=== PATIENT | male | born 1970 | race Caucasian/White ===

== ENCOUNTER → 2017-06-12 07:29 | Outpatient (CLI) | payer OTHER, SELFPAY ==
[2017-06-12 08:29] LABS: Protein, Urine (Random) 226.1 mg/dL (<11.9); Protein:Creat Ratio 1900 mg/g CRE (0-200)
[2017-06-12 08:33] LABS: Absolute Neutrophil Count 4.7 X10^3/uL (2.0-7.7); Basophil# 0.05 X10^3/uL; Basophil% 0.7 % (0-1); Color, Urine Yellow (Yellow); Eosinophil# 0.34 X10^3/uL; Eosinophils% 4.5 % (0-5); Glucose, Dipstick Normal (Normal); Hematocrit 36.3 % (40-54); Hemoglobin 12.4 g/dl (13.0-16.5); Ketone-Dipstick Negative (Negative); Leukocyte Esterase-Dipstick Negative /ul (Negative); Lymphocyte % 25.2 % (19-41); Mean Corp Hgb Conc 34.2 g/gl (32-36); Mean Corpuscular Hgb 30.1 pg (27.0-32.0); Mean Corpuscular Volume 88.1 fL (80-94); Monocyte# 0.59 X10^3/uL; Monocyte% 7.8 % (0-10); Neutrophil # 4.66 X10^3/uL (2.7-7.7); Neutrophil % 61.7 % (47-70); Nitrite-Dipstick Negative (Negative); Occult Blood-Urine 10 /ul (Negative); Platelet Count 239 K/mm3 (150-450); Protein-Dipstick 500 mg/dl (Negative); RBC Distribution Width CV 12.8 % (11.6-14.6); RBC Distribution Width SD 41.4 fl (35.1-43.9); Red Blood Count 4.12 M/mm3 (4.6-6.2); Urine Bilirubin Dipstick Negative (Negative); Urine Clarity Clear (Clear); Urine Urobilinogen Normal (Normal); White Blood Count 7.6 K/mm3 (4.4-11.0)
[2017-06-12 08:43] LABS: POSITIVE COUNT NO; POSITIVE DIFFERENTIAL NO; POSITIVE MORPHOLOGY NO
[2017-06-12 09:04] LABS: AST(SGOT) 23 U/L (15-37); Alanine Aminotransfer ALT/SGPT 26 U/L (16-61); Alkaline Phosphatase 46 U/L (45-117); Anion Gap 7 (5-15); BUN 21 mg/dL (7-18); BUN/Creat Ratio 14.8 RATIO (10-20); Calcium,Total 8.6 mg/dL (8.5-10.1); Chloride 105 mmol/L (98-107); Creatinine, Serum 1.42 mg/dL (0.70-1.30); EST Glomerular Filtration Rate 57 mL/min (>60); Est Glom Filt Rate - Afr Amer 69 mL/min (>60); Glucose 101 mg/dL (74-106); Potassium 4.3 mmol/L (3.5-5.1); Sodium Level 139 mmol/L (136-145)
== END ==
PROVIDERS: Family Provider Nurse Practitioner Family; PCP Nurse Practitioner Family
DX: N02.2 Recurrent and persistent hematuria with diffuse membranous glomerulonephritis (principal)
CPT/HCPCS: 36415; 80053; 81002; 82570; 84156; 85025

== ENCOUNTER → 2017-10-16 08:54 | Outpatient (CLI) | payer OTHER, SELFPAY ==
[2017-10-16 09:06] LABS: Bacteria 0 SEEN /hpf (None Seen); Mucous, Urine 0 SEEN /hpf (<or=2+); Red Blood Cells-Urine 0 SEEN /hpf (0-5); Squamous Epithelial Cells - UA 0 SEEN /hpf (0-5); White Blood Cells 0 SEEN /hpf (0-5)
[2017-10-16 09:25] LABS: Absolute Lymphocyte Count 2.01 X10^3/ul (0.83-4.51); Absolute Neutrophil Count 4.6 X10^3/uL (2.0-7.7); Basophil# 0.04 X10^3/uL; Basophil% 0.5 % (0-1); Eosinophil# 0.33 X10^3/uL; Eosinophils% 4.4 % (0-5); Hematocrit 35.3 % (40-54); Hemoglobin 12.3 g/dl (13.0-16.5); Lymphocyte # 2.01 X10^3/ul (4.0); Lymphocyte % 26.7 % (19-41); Mean Corp Hgb Conc 34.8 g/gl (32-36); Mean Corpuscular Hgb 30.8 pg (27.0-32.0); Mean Corpuscular Volume 88.3 fL (80-94); Mean Platelet Vol. 9.9 fl (6.2-12.0); Monocyte# 0.56 X10^3/uL; Monocyte% 7.4 % (0-10); Neutrophil # 4.56 X10^3/uL (2.7-7.7); Neutrophil % 60.7 % (47-70); POSITIVE COUNT NO; POSITIVE DIFFERENTIAL NO; POSITIVE MORPHOLOGY NO; Platelet Count 243 K/mm3 (150-450); RBC Distribution Width CV 12.6 % (11.6-14.6); RBC Distribution Width SD 39.8 fl (35.1-43.9); White Blood Count 7.5 K/mm3 (4.4-11.0)
[2017-10-16 09:51] LABS: Color, Urine Yellow (Yellow); Glucose, Dipstick Normal (Normal); Ketone-Dipstick Negative (Negative); Leukocyte Esterase-Dipstick Negative /ul (Negative); Nitrite-Dipstick Negative (Negative); Occult Blood-Urine 10 /ul (Negative); Protein-Dipstick 500 mg/dl (Negative); Specific Gravity, Urine 1.015 (1.002-1.030); Urine Bilirubin Dipstick Negative (Negative); Urine Clarity Clear (Clear); Urine Urobilinogen Normal (Normal)
[2017-10-16 09:55] LABS: BUN 17 mg/dL (7-18); BUN/Creat Ratio 13.1 RATIO (10-20); Calcium,Total 8.6 mg/dL (8.5-10.1); Chloride 108 mmol/L (98-107); EST Glomerular Filtration Rate 63 mL/min (>60); Est Glom Filt Rate - Afr Amer 76 mL/min (>60); Glucose 97 mg/dL (74-106); Phosphorus 3.4 mg/dL (2.5-4.9); Potassium 4.2 mmol/L (3.5-5.1); Sodium Level 139 mmol/L (136-145)
[2017-10-16 09:59] LABS: Protein, Urine (Random) 196.7 mg/dL (<11.9); Protein:Creat Ratio 1710 mg/g CRE (0-200)
== END ==
PROVIDERS: Family Provider Nurse Practitioner Family; PCP Nurse Practitioner Family
DX: N02.2 Recurrent and persistent hematuria with diffuse membranous glomerulonephritis (principal)
CPT/HCPCS: 36415; 80069; 81001; 82570; 84156; 85025

== ENCOUNTER → 2017-12-11 09:15 | Outpatient (CLI) | payer OTHER, SELFPAY ==
[2017-12-11 09:24] LABS: Bacteria 0 SEEN /hpf (None Seen); Mucous, Urine 0 SEEN /hpf (<or=2+); Red Blood Cells-Urine 0 SEEN /hpf (0-5); Squamous Epithelial Cells - UA 0 SEEN /hpf (0-5); White Blood Cells 0 SEEN /hpf (0-5)
[2017-12-11 09:44] LABS: Color, Urine Yellow (Yellow); Glucose, Dipstick Normal (Normal); Hematocrit 36.1 % (40-54); Hemoglobin 12.6 g/dl (13.0-16.5); Ketone-Dipstick Negative (Negative); Leukocyte Esterase-Dipstick Negative /ul (Negative); Mean Corp Hgb Conc 34.9 g/gl (32-36); Mean Corpuscular Hgb 30.8 pg (27.0-32.0); Mean Corpuscular Volume 88.3 fL (80-94); Nitrite-Dipstick Negative (Negative); Occult Blood-Urine 10 /ul (Negative); Platelet Count 234 K/mm3 (150-450); Protein-Dipstick 100 mg/dl (Negative); RBC Distribution Width CV 12.8 % (11.6-14.6); RBC Distribution Width SD 40.6 fl (35.1-43.9); Red Blood Count 4.09 M/mm3 (4.6-6.2); Specific Gravity, Urine 1.015 (1.002-1.030); Urine Bilirubin Dipstick Negative (Negative); Urine Clarity Clear (Clear); Urine Urobilinogen Normal (Normal); White Blood Count 8.4 K/mm3 (4.4-11.0)
[2017-12-11 09:45] LABS: Scan Indicated on CBC? Y/N NO
[2017-12-11 10:18] LABS: Protein:Creat Ratio 1789 mg/g CRE (0-200)
[2017-12-11 10:20] LABS: Albumin, Serum 3.1 g/dL (3.2-5.0); BUN 17 mg/dL (7-18); BUN/Creat Ratio 12.1 RATIO (10-20); Calcium,Total 8.8 mg/dL (8.5-10.1); Chloride 106 mmol/L (98-107); EST Glomerular Filtration Rate 58 mL/min (>60); Est Glom Filt Rate - Afr Amer 70 mL/min (>60); Glucose 96 mg/dL (74-106); Phosphorus 3.8 mg/dL (2.5-4.9); Sodium Level 140 mmol/L (136-145)
== END ==
PROVIDERS: Family Provider Nurse Practitioner Family; PCP Nurse Practitioner Family
DX: N02.2 Recurrent and persistent hematuria with diffuse membranous glomerulonephritis (principal)
CPT/HCPCS: 36415; 80069; 81001; 82570; 84156; 85027

== ENCOUNTER → 2018-04-12 07:46 | Outpatient (CLI) | payer OTHER, SELFPAY ==
[2018-04-12 07:56] LABS: Mucous, Urine 0 SEEN /hpf (<or=2+); Red Blood Cells-Urine 0 SEEN /hpf (0-5); Squamous Epithelial Cells - UA 0 SEEN /hpf (0-5); White Blood Cells 0 SEEN /hpf (0-5)
[2018-04-12 09:25] LABS: Absolute Lymphocyte Count 1.88 X10^3/ul (0.83-4.51); Basophil# 0.04 X10^3/uL; Basophil% 0.5 % (0-1); Eosinophil# 0.36 X10^3/uL; Eosinophils% 4.5 % (0-5); Hematocrit 36.9 % (40-54); Hemoglobin 12.5 g/dl (13.0-16.5); Lymphocyte # 1.88 X10^3/ul (4.0); Lymphocyte % 23.7 % (19-41); Mean Corp Hgb Conc 33.9 g/gl (32-36); Mean Corpuscular Hgb 30.3 pg (27.0-32.0); Mean Corpuscular Volume 89.6 fL (80-94); Mean Platelet Vol. 10.6 fl (6.2-12.0); Monocyte# 0.64 X10^3/uL; Monocyte% 8.1 % (0-10); Neutrophil % 62.9 % (47-70); Platelet Count 235 K/mm3 (150-450); RBC Distribution Width CV 12.6 % (11.6-14.6); RBC Distribution Width SD 40.5 fl (35.1-43.9); Red Blood Count 4.12 M/mm3 (4.6-6.2); White Blood Count 7.9 K/mm3 (4.4-11.0)
[2018-04-12 09:26] LABS: Color, Urine Yellow (Yellow); Glucose, Dipstick Normal (Normal); Ketone-Dipstick Negative (Negative); Leukocyte Esterase-Dipstick Negative /ul (Negative); Nitrite-Dipstick Negative (Negative); Occult Blood-Urine 10 /ul (Negative); Protein-Dipstick 500 mg/dl (Negative); Specific Gravity, Urine 1.015 (1.002-1.030); Urine Bilirubin Dipstick Negative (Negative); Urine Clarity Sl. Cloudy (Clear); Urine Urobilinogen Normal (Normal)
[2018-04-12 09:27] LABS: POSITIVE COUNT NO; POSITIVE DIFFERENTIAL NO; POSITIVE MORPHOLOGY NO
[2018-04-12 09:39] LABS: Bacteria RARE /hpf (None Seen); Protein, Urine (Random) 489.9 mg/dL (<11.9); Protein:Creat Ratio 3711 mg/g CRE (0-200)
[2018-04-12 09:52] LABS: Albumin, Serum 2.5 g/dL (3.2-5.0); BUN 23 mg/dL (7-18); BUN/Creat Ratio 17.4 RATIO (10-20); Calcium,Total 8.2 mg/dL (8.5-10.1); Chloride 109 mmol/L (98-107); Creatinine, Serum 1.32 mg/dL (0.70-1.30); EST Glomerular Filtration Rate 62 mL/min (>60); Est Glom Filt Rate - Afr Amer 74 mL/min (>60); Glucose 96 mg/dL (74-106); Phosphorus 3.2 mg/dL (2.5-4.9); Potassium 4.1 mmol/L (3.5-5.1); Sodium Level 142 mmol/L (136-145)
--- OUTSIDE RECORDS SUMMARY | 2018-07-14 12:40 | XMS RPT_ITS ---
:1970 Author Organization [facility] Care Team Providers Name Role Phone EVERETT GIRARD Attending Unavailable EVERETT GIRARD Referring Unavailable GIRARDEVERETT Acosta Attending Unavailable GIRARDEVERETT Acosta Referring Unavailable GIRARDEVERETT Acosta Referring Unavailable JOSE FRIED Attending Unavailable JOSE FRIED Referring Unavailable Garrett Wallace DRY TRANSFER WORKER-C Primary Care Unavailable JOSE FRIED Attending Unavailable Garrett Wallace DRY TRANSFER WORKER-C Primary Care Unavailable JOSE FRIED Referring Unavailable JOSE FRIED Attending Unavailable JOSE FRIED Referring Unavailable Garrett Wallace DRY TRANSFER WORKER-C Primary Care Unavailable JOSE FRIED Attending Unavailable JOSE FRIED Referring Unavailable Garrett Wallace DRY TRANSFER WORKER-C Primary Care Unavailable PROBLEMS PROBLEMS DATE TYPE CONDITION / CODE ATTENDING STATUS SOURCE 12/16/2017 Active Obesity, unspecified / NA Active [facility] E66.9(ICD-10) [facility] [place] [facility] 05/10/2015 Active Tobacco use / NA Active [facility] Z72.0(ICD-10) [facility] [place] [facility] 03/14/2013 Active Chronic kidney disease, NA Active [facility] stage 3 (moderate) / Clinic Main N18.3(ICD-10) [place] [facility] 08/02/2012 Active Nephrotic syndrome with NA Active [facility] other morphologic Clinic Main changes / N04.8(ICD-10) [place] [facility] 08/02/2012 Active Nephrotic syndrome with NA Active [facility] unspecified morphologic Clinic Main changes / N04.9(ICD-10) [place] [facility] 06/17/2017 Active Unknown / UNK(Unknown) EVERETT GIRARD Active [facility] Main [place] Rep[facility] 12/22/2017 Unknown N02.2 - Recurrent and JOSE FRIED Active [place] persistent hematuria [facility] with diffuse membranous Hospital glomerulonephritis / Repository N02.2(ICD-10) PROCEDURES PROCEDURES No Procedure Records FoundRESULTS RESULTS CBC W/DIFF, AUTOMATED Collected: 04/12/2018 Status: F Source: [place] 7:54 AM [facility] REPOSITORY TYPE CODE TESTS RESULT OUT OF RANGE REFERENCE UNITS LAB L100.1000 4.4-11.0 K/mm3 Normal WBC 7.9 LAB L100.1200 4.6-6.2 M/mm3 Low RBC 4.12 LAB L100.1300 13.0-16.5 g/dl Low HGB 12.5 LAB L100.1400 40-54 % Low HCT 36.9 LAB L100.1500 80-94 fL Normal MCV 89.6 LAB L100.1600 27.0-32.0 pg Normal MCH 30.3 LAB L100.1700 32-36 g/gl Normal MCHC 33.9 LAB L100.1810 11.6-14.6 % Normal RDW CV 12.6 LAB L100.1820 35.1-43.9 fl Normal RDW SD 40.5 LAB L100.1900 150-450 K/mm3 Normal PLT 235 LAB L100.2000 6.2-12.0 fl Normal MPV 10.6 LAB L100.2100 47-70 % Normal NEUT% 62.9 LAB L100.2200 19-41 % Normal LY% 23.7 LAB L100.2300 0-10 % Normal MONO% 8.1 LAB L100.2400 0-5 % Normal EO% 4.5 LAB L100.2500 0-1 % Normal BASO% 0.5 LAB L100.2550 0.0-0.9 % Normal IM GRAN % 0.300 Result Comment: IG% - Immature Granulocytes (promyelocytes, myelocytes and metamyelocytes) > 1% indicates that a LEFT SHIFT is Present. LAB L100.2620 2.0-7.7 X10 3/uL Normal Absolute Neut 5.0 LAB L100.2720 0.83-4.51 X10 3/ul Normal Absolute Lymph 1.88 Performed By: #### L100.0100 #### [facility] [address] [place], [address] PROTEIN+CREATININE Collected: Status: F Source: [place] RATIO,URINE 04/12/2018 7:54 AM [facility] REPOSITORY TYPE CODE TESTS RESULT OUT OF RANGE REFERENCE UNITS LAB L501.1200 NO RANGE EST. mg/dL Normal UR CREAT 132.00 LAB L501.1930 <11.9 mg/dL High 489.9 PROTEIN,UR.R AN. LAB L501.1940 0-200 mg/g CRE High PROT:CRE 3711 RATIO Performed By: #### L501.0900 #### [facility] [address] [place], [address] URINALYSIS, COMPLETE Collected: 04/12/2018 Status: F Source: [place] 7:54 AM [facility] REPOSITORY Order Comment: How was Urine Obtained? CLEAN CATCH TYPE CODE TESTS RESULT OUT OF RANGE REFERENCE UNITS LAB L400.3000 Yellow COLOR Normal Yellow LAB L400.3050 Clear Normal CLARITY Sl. Cloudy LAB L400.3200 Normal mg/dl Normal GLUCOSE, UR Normal LAB L400.3300 Negative mg/dL Normal BILIRUBIN URINE Negative LAB L400.3400 Negative mg/dl Normal KETONE UR Negative LAB L400.3465 1.002-1.030 Normal SP.GR. DIPSTX 1.015 LAB L400.3550 5.0 - 8.0 pH UR Normal 6.0 LAB L400.3600 Negative mg/dl High PROT DIPSTX 500 LAB L400.3700 Normal mg/dl Normal UROBILI Normal LAB L400.3750 Negative Normal NITRITE UR Negative LAB L400.3780 Negative /ul High 10 OCCULT BLOOD-UR LAB L400.3800 Negative /ul LEUK Normal ESTERASE Negative LAB L400.4050 0-5 /hpf WBC 0 Normal SEEN LAB L400.4100 0-5 /hpf 0 Normal RBC-UA SEEN LAB L400.4150 0-5 /hpf SQUAM 0 Normal EPI SEEN LAB L400.4300 None Seen /hpf Normal BACTERIA RARE LAB L400.4350 <or=2+ /hpf 0 Normal MUCUS, URINE SEEN Performed By: #### L400.0001 #### [facility] [address] [place], [place], [address] RENAL PROFILE Collected: 04/12/2018 Status: F Source: [place] 7:54 AM [facility] REPOSITORY TYPE CODE TESTS RESULT OUT OF RANGE REFERENCE UNITS LAB L501.0100 74-106 mg/dL Normal GLU 96 Result Comment: Please note revised GLUCOSE reference range effective 2017. LAB L501.1000 7-18 mg/dL High BUN 23 LAB L501.1100 0.70-1.30 mg/dL High CREAT,SERUM 1.32 Result Comment: The validity of the calculated GFR AND GFRAA in patients over 70 years has not been determined. Clinical correlation is essential. LAB L501.1110 >60 mL/min Normal EST GFR 62 Result Comment: Non- GFR Calc LAB L501.1115 >60 mL/min Normal EST GFR - AA 74 Result Comment: GFR Calc LAB L501.1300 10-20 RATIO Normal BUN/CRE 17.4 LAB L501.1800 3.2-5.0 g/dL Low ALB 2.5 LAB L501.2200 8.5-10.1 mg/dL Low CA 8.2 LAB L501.2300 2.5-4.9 mg/dL Normal PHOS 3.2 LAB L501.5300 136-145 mmol/L NA Normal 142 LAB L501.5600 3.5-5.1 mmol/L K Normal 4.1 LAB L501.5900 98-107 mmol/L High CL 109 LAB L501.6100 21.0-32.0 mmol/L Normal CO2 27.0 Performed By: #### L500.3600 #### [facility] [address] [place], [address] CBC AND DIFFERENTIAL Collected: 12/16/2017 Status: F Source: [place] 10:11 AM [facility] REPOSITORY TYPE CODE TESTS RESULT OUT OF REFERENCE UNITS RANGE LAB WBC 3.70-11.00 k/uL WBC 8.96 LAB RBC 4.20-6.00 m/uL Low RBC 4.04 LAB HGB 13.0-17.0 g/dL Low Hemoglobin 12.5 LAB HCT 39.0-51.0 % Low Hematocrit 36.7 LAB MCV 80.0-100.0 fL MCV 90.8 LAB MCH 26.0-34.0 pG MCH 30.9 LAB MCHC 30.5-36.0 g/dL MCHC 34.1 LAB RDWCV 11.5-15.0 % RDW-CV 12.6 LAB PLTCT 150-400 k/uL Platelet Count 241 LAB MPV 9.0-12.7 fL MPV 10.2 LAB ANEUT % Neut% 60.2 LAB AANEUT 1.45-7.50 k/uL Abs Neut 5.38 LAB ALYMP % Lymph% 27.2 LAB AALYMP 1.00-4.00 k/uL Abs Lymph 2.44 LAB AMONO % Wetzel% 8.1 LAB AAMONO <0.87 k/uL Abs Wetzel 0.73 LAB AEOS % Eosin% 4.2 LAB AAEOS <0.46 k/uL Abs Eosin 0.38 LAB ABASO % Baso% 0.3 LAB AABASO <0.11 k/uL Abs Baso 0.03 LAB DTYP DTYPE Auto Diff Performed By: #### PTHI, LIPB, HBA1C, VITD #### [facility] [address] [place], [place] [address] #### PLA2R #### [facility] [address] [place] [address] [phone] RENAL FUNCTION PANEL Collected: 12/16/2017 Status: F Source: [place] 10:11 AM [facility] REPOSITORY TYPE CODE TESTS RESULT OUT OF REFERENCE UNITS RANGE LAB ALB 3.5-5.0 g/dL Albumin 3.7 LAB CA 8.5-10.5 mg/dL Calcium, Total 9.1 LAB PHOS 2.5-4.5 mg/dL Phosphorus 3.2 LAB GLU 65-100 mg/dL Glucose High 107 LAB BUN 10-25 mg/dL BUN 22 LAB CRET 0.70-1.40 mg/dL Creatinine 1.40 LAB NA 135-146 mmol/L Sodium 143 LAB K 3.5-5.0 mmol/L Potassium 4.6 LAB CL 98-110 mmol/L Chloride 108 LAB CO2 23-32 mmol/L CO2 24 LAB AGAP 9-18 mmol/L Anion Gap 11 LAB GFRAA eGFR- >60 Amer. LAB GFRNAA . eGFR-All Other Races 54 Result Comment: eGFR (Estimated GFR) Units of measure: mL/min/1.73 meters squared eGFR is derived from the reexpressed MDRD Study equation using the following parameters: serum creatinine, age, gender and race. The creatinine assay has been calibrated to be traceable to IDMS. An eGFR <60 mL/min/1.73m2 for >3 months is consistent with chronic kidney disease. Refer to KDOQI guidelines for clinical interpretation. In patients with unstable renal function, e.g. those with acute kidney injury, the eGFR may not accurately reflect actual GFR. Performed By: #### PTHI, LIPB, HBA1C, VITD #### [facility] [address] [place] [phone] #### PLA2R #### [facility] [address] [place] [address] [phone] PTH, INTACT Collected: 12/16/2017 Status: F Source: [place] 10:11 AM [facility] REPOSITORY TYPE CODE TESTS RESULT OUT OF REFERENCE UNITS RANGE LAB PTH 15-65 pg/mL PTH, Intact 35 Performed By: #### PTHI, LIPB, HBA1C, VITD #### [facility] [address] [place] [phone] #### PLA2R #### [facility] [address] [place] [address] [phone] LIPID PANEL, BASIC Collected: 12/16/2017 Status: F Source: [place] 10:11 AM [facility] REPOSITORY TYPE CODE TESTS RESULT OUT OF REFERENCE UNITS RANGE LAB CHOL <200 mg/dL Cholesterol High 225 Result Comment: <200 mg/dL, Desirable 200-239 mg/dL, Borderline high >239 mg/dL, High LAB TRIGLY <150 mg/dL Triglyceride High 163 Result Comment: <150 mg/dL, Normal 150-199 mg/dL, Borderline high 200-499 mg/dL, High >499 mg/dL, Very high LAB HDL >39 mg/dL HDL-Cholesterol Low 35 Result Comment: 40-59 mg/dL, Acceptable >59 mg/dL, High: Negative risk factor for coronary heart disease <40 mg/dL, Low: Positive risk factor for coronary heart disease LAB LDL <100 mg/dL LDL-Cholesterol High 157 Result Comment: <100 mg/dL, Optimal 100-129 mg/dL, Near optimal/above optimal 130-159 mg/dL, Borderline high 160-189 mg/dL, High >189 mg/dL, Very high Secondary prevention optimal LDL Cholesterol levels are recommended to be < 70 mg/dL LAB NONHDL <130 mg/dL Non HDL High Cholesterol 190 Result Comment: <130 mg/dL, Optimal 130-159 mg/dL, Near optimal/above optimal 160-189 mg/dL, Borderline high 190-219 mg/dL, High >219 mg/dL, Very high Secondary prevention optimal non HDL Cholesterol levels are recommended to be < 100 mg/dL LAB FT hrs Fasting Time Unknown LAB VLDL <30 mg/dL VLDL 33 High Cholesterol LAB TCHDL <5.10 TC:HDL Ratio High 6.43 LAB LDLHDL <2.54 LDL:HDL Ratio High 4.49 Result Comment: Reference: 1. National Cholesterol Education Program ATP III Guideline At-A-Glance Quick Desk Reference: National Heart, Lung, and Blood [place]. National Institutes of Health. 2001: NIH Publication No. 01-3305. 2. An International Atherosclerosis Society position paper: global recommendations for the management of dyslipidemia: executive summary, Atherosclerosis. 2014: 232(2):410-413. Performed By: #### PTHI, LIPB, HBA1C, VITD #### [facility] [address] [place], [place] [address] #### PLA2R #### [facility] [address] [place] [address] [phone] HEMOGLOBIN A1C Collected: 12/16/2017 Status: F Source: [place] 10:11 AM [facility] REPOSITORY TYPE CODE TESTS RESULT OUT OF REFERENCE UNITS RANGE LAB HGBA1C 4.3-5.6 % High Hemoglobin A1c 5.9 LAB HBA0 mg/dL Est. Average Glucose 123 Result Comment: eAG: (Estimated average glucose) is a calculated value from HgbA1c and is used equipment sales representative of the average blood glucose level in the last 2-3 month period. Performed By: #### PTHI, LIPB, HBA1C, VITD #### [facility] [address] [place] [address] #### PLA2R #### [facility] [address] [id number] [phone] VITAMIN D 25 HYDROXY Collected: 12/16/2017 Status: F Source: [place] 10:11 AM [facility] REPOSITORY TYPE CODE TESTS RESULT OUT OF REFERENCE UNITS RANGE LAB VITD 31.0-80.0 ng/mL Low Vitamin D 25 27.9 Hydroxy Result Comment: Classification of 25 [place] Vitamin D status: Insufficiency/Moderate Deficiency: < or = 30 ng/mL Sufficiency/Optimal Levels: 31 to 80 ng/mL Toxicity: > 100 ng/mL Test performed by chemiluminescent immunoassay. Performed By: #### PTHI, LIPB, HBA1C, VITD #### [facility] [address] [place] [address] #### PLA2R #### [address] [address] [phone] PHOSLIPASEA2 RECEPAB Collected: 12/16/2017 Status: F Source: [place] 10:11 AM [facility] REPOSITORY TYPE CODE TESTS RESULT OUT OF REFERENCE UNITS RANGE LAB PLA2RA <1:10 PhosLipaseA2 <1:10 RecepAb Result Comment: (NOTE) Phospholipase A2 ReceptorAntibody, IgG is not detected. No further testing will be performed. Performed by [facility], [address] [place] [phone] [email or web address], Bassam Vargas MD, Lab. Director Performed By: #### PTHI, LIPB, HBA1C, VITD #### [facility] [address] [place] [address] #### PLA2R #### [employer] [address] [id number] [phone] PROGRESS Observed: 12/16/2017 Status: COMPLETED Source: [place] 9:36 AM [facility] [place] REPOSITORY O ID: [id number] Author: Everett Girard Service: (none) Author Type: Physician Type: Progress Notes Filed: 12/16/2017 9:55 AM Note Text: [facility] FOR[facility]. Patient Name: Fan Donahue CHIEF COMPLAINT: follow up on membranous nephropathy. HPI: Fan Donahue is a 46 year old (Gnosticist) male accompanied by his . ?? I initially saw him in July 2012. Mr. Donahue came seeking a second opinion for nephrotic syndrome with up to 9 gr/day, biopsy proven idiopathic/immune membranous glomerulopathy for which he was started on diuretics and cyclosporine. The biopsy was confirmed as membranous here. He quit taking the latter one due to side effects that according to him developed within 2 days, later stopping all medications recommended by physicians. His eGFR was above 80 according to outside medical records. He did have multiple serologies checked with all normal or negative results. At that point I was in agreement with immunosuppression given the high degree of proteinuria, however, wanted to add VIMAL inhibitor. He agreed at that moment but didn't take any medications other than herbal and OTC supplements that he was told by non-medical personnel it would improve his kidney disease. He later agreed to take lisinopril and furosemide but renal function continued to deteriorate with Cr up to 1.5 and proteinuria peaking at 18 gr/day. Finally agreed to start steroid high dose 80 mg/day and cyclosporine 100 mg BID during visit 03/14/13. 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 Had excellent reponse with proteinuria coming down from 18 to 3.6 gr, albumin improved and lipids decreased. He was on coumadin prophylaxis now stopped. Had echocardio due to new murmur pretty much unremarkable. BRENT in the past. He plays with the medications sometimes trying to avoid side effects. He actually stopped taking prednisone altogether due to blurry vision in his left eye at some point. Had laser surgery. ?? Had PLA2R positive titer 1:80 in 01/2015 and repeated in 08/2015 1:160. Was then given Rituximab 1 gr IV x2 on 09/25 and 10/10 2015. PLA2R almost negative (1:10)?in 10/2015 positive again 1:80 in 07/2016. Off prednisone and cyclosporine since 11/2015. Pr/Cr ratio 2.9 up in most recent in 07/2016 to 3.7, Cr up to 1.3 from 1.2 and alb down from 2.6 to 2.3. ?Again feeling not well since last visit in 07/2016. ?Worsening albumin 2.0 10/20/16 and PrCr ratio up to 5 again in 07/2016. ?Was given Rituximab second round in and 11/2016. Since then feeling much better. ?01/30/2017: Cr 1.2, Alb 2.6, Pr/Cr 2.3, Hg 12.5. Since visit in 05/2017 virtually no edema, variable frothy urine but is random. Knows he has gained a lot of weight. Continues to smoke. Labs 11/2017 stable Cr ~1.4, Alb 3.1, Pr/Cr 1.7. 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 - CKD (chronic kidney disease) stage 3, GFR 30-59 ml/min ([facility]) - Membranous nephrosis - Nephrotic syndrome - Tobacco use PAST SURGICAL HISTORY Procedure Laterality Date - PAST SURGICAL HISTORY OF appendix Current Outpatient Prescriptions: lisinopril (ZESTRIL, PRINIVIL) 10 mg tablet Take 1 tablet by mouth once daily. Magnesium 30 mg tablet Take 30 mg by mouth twice daily. Unsure of dose escitalopram oxalate 10 mg tablet Take 1 tablet by mouth once daily. CALCIUM ORAL Take 1 tablet by mouth twice daily. No current facility-administered medications for this visit. ALLERGIES No Known Allergies Social History Marital status: Spouse name: Years of education: Number of children: Occupational History Occupation Employer Comment Land work. Social History Main Topics Smoking status: Current Every Day Smoker Packs/day: 0.80 Years: 20.00 Types: Cigarettes Smokeless tobacco: Never Used Alcohol use: No Drug use: No FAMILY HISTORY Problem Relation Age of Onset - Hypertension Mother - Hypertension Sister - other (amyloidosis [Other]) Other Cousin on [employer] due to it. Review of systems: General: Negative for weight loss, night sweats, fever, and fatigue Head/Neck: Negative for photophobia, oral ulcers/sores, metallic or bitter taste, epistaxis, and chronic nasal congestion Cardiac: Negative for syncope, palpitations, orthopnea, lightheadedness, dizziness, chest pain or pressure, and PND Vascular: Negative for raynauds, edema, and claudication Pulmonary: Negative for hemoptosis, dyspnea, and cough GastroIntestinal: Negative for nausea, loss of appetite, emesis, diarrhea, constipation, and abdominal pain Genito-Urinary: Positive for frothy urine; Negative for urinary hesitancy, urinary frequency, straining, pink or red urine, pain with urination, nocturia, groin pain, flank pain, and decreased urine Musculoskeletal: Negative for joint swelling, and joint pain Neurologic: Negative for weakness, tremor, parathesias, and numbness Skin: Negative for rash, photosensitivity, and malar rash Hematology: Negative for easy bruising, and easy bleeding Endocrinology: Negative for hypoglycemic events, and heat or cold intolerance Other: Negative for morning headache, excessive snoring, and daytime somnolence No enlarged lymph nodes, lymphadenopathy or lymph tenderness. BP 119/78 (BP Site: Right Arm, BP Position: Sitting, BP Cuff Size: Regular Adult) Pulse (!) 50 Ht 175.3 cm (5' 9) Wt 106.1 kg (234 lb) BMI 34.56 kg/m? Average BP (BpTru): 119/78 BpTRU BP #1 discard value (BpTru): 126/79 Pulse #1 Discard Value (BpTru): 49 beats/min BP #2 (BpTru): 119/80 Pulse #2 (BpTru): 49 beats/min BP #3 (BpTru): 124/73 Pulse #3 (BpTru): 49 beats/min BP #4 (BpTru): 116/83 Pulse #4 (BpTru): 50 beats/min BP #5 (BpTru): 123/79 Pulse #5 (BpTru): 52 beats/min BP #6 (BpTru): 115/76 Pulse #6 (BpTru): 50 beats/min Average BP (BpTru): 119/78 Average Pulse (BpTru): 50 beats/min BP cuff location: Right upper arm BP cuff size: regular adult Exam: Constitutional: Not obese. Mental status: alert and oriented x 3. No acute distress. ENT: Oral mucosa: moist, no lesions, no jaundice. Oropharynx no lesions, erythema or exudate. Eyes: No icterus, not injected. Cardiovascular: Heart: normal rate, regular rhythm, + murmur heard today, no rubs. Lungs: Symmetric lung expansion. Clear to auscultation without wheezes, rales or rubs. Abdomen: Flat. Bowel sounds present and normoactive. Non-tender to palpation. Non-distended. Extremities: No edema. No deformities. Skin: No jaundice. No rash. No malar rash. Musculoskeletal: Joints without swelling, tenderness, erythema, warmth. No muscle tenderness. FROM Neuro: no major focal deficits. No asterixis. Labs reviewed Hemoglobin (g/dL) Date Value 08/20/2016 12.6 Hematocrit (%) Date Value 08/20/2016 37.1 WBC (k/uL) Date Value 08/20/2016 9.70 Glucose (mg/dL) Date Value 08/20/2016 99 Potassium (mmol/L) Date Value 08/20/2016 4.2 Sodium (mmol/L) Date Value 08/20/2016 140 Chloride (mmol/L) Date Value 08/20/2016 107 CO2 (mmol/L) Date Value 08/20/2016 23 Creatinine (mg/dL) Date Value 08/20/2016 1.40 BUN (mg/dL) Date Value 08/20/2016 21 Anion Gap (mmol/L) Date Value 08/20/2016 10 Calcium (mg/dL) Date Value 08/20/2016 8.6 Albumin (g/dL) Date Value 08/20/2016 2.6 pH, Urine Date Value Ref Range Status 04/07/2016 6.5 4.5 - 8.0 Final Specific [place], Ur Date Value Ref Range Status 04/07/2016 1.013 1.005 - 1.030 Final Glucose, Urine Date Value Ref Range Status 04/07/2016 Negative Negative mg/dL Final Bilirubin, Urine Date Value Ref Range Status 04/07/2016 Negative Negative Final Ketones, Urine Date Value Ref Range Status 04/07/2016 Negative Negative Final Hemoglobin/Blood,Ur Date Value Ref Range Status 04/07/2016 Trace (A) Negative Final Protein, Urine Date Value Ref Range Status 04/07/2016 >=300 (A) Negative mg/dL Final Urobilinogen Date Value Ref Range Status 04/07/2016 Normal Normal Final Nitrites Date Value Ref Range Status 04/07/2016 Negative Negative Final WBC, Urine Date Value Ref Range Status 04/07/2016 0-5 0 - 5 /HPF Final Assessment/Plan- P ICD-10-CM PL 1. Membranous nephrosis N04.8 Change Dx 2. Chronic kidney disease, stage III (moderate) (HCC) N18.3 Change Dx 3. Obesity, Class I, BMI 30-34.9 E66.9 Change Dx 4. Nephrotic syndrome N04.9 Change Dx 5. Tobacco use Z72.0 Stable renal function. Still with residual proteinuria. Based on this will increase lisinopril 20 mg/night. Will check labs closer due to this change and for progression of the disease. Will do monthly labs and RTC in 6 months. Will also do labs here today mainly to check on titers of PLA2R which haven't been checked since 07/2016 as we need to see if another dose of Rituximab or other IS is warranted. Will also check PTH, vit D and lipids with HgA1c All questions answered. Thank You for allowing us to participate in his care. Everett Girard MD. [facility] [id number] Staff. Nephrology and Hypertension. December 16, 2017 9:37 AM CNOV Observed: 12/16/2017 Status: COMPLETED Source: [place] 9:05 AM [facility] REPOSITORY Office Visit (NEPHTW) FAN DONAHUE ([id number]) 1970 M Date Time Provider Department 12/16/17 9:05 AM EVERETT GIRARD NEPHTW During your visit today, we recorded the following information about you: Pulse Blood pressure Weight Height 50/minute 119/78 106.1 kg 1.753 m Karen Rob Patrick 12/16/2017 9:00 AM Signed Average BP (BpTru): 119/78 BpTRU BP #1 discard value (BpTru): 126/79 Pulse #1 Discard Value (BpTru): 49 beats/min BP #2 (BpTru): 119/80 Pulse #2 (BpTru): 49 beats/min BP #3 (BpTru): 124/73 Pulse #3 (BpTru): 49 beats/min BP #4 (BpTru): 116/83 Pulse #4 (BpTru): 50 beats/min BP #5 (BpTru): 123/79 Pulse #5 (BpTru): 52 beats/min BP #6 (BpTru): 115/76 Pulse #6 (BpTru): 50 beats/min Average BP (BpTru): 119/78 Average Pulse (BpTru): 50 beats/min BP cuff location: Right upper arm BP cuff size: regular adult Everett Girard MD 12/16/2017 9:55 AM Signed [facility]. Patient Name: Fan Donahue CHIEF COMPLAINT: follow up on membranous nephropathy. HPI: Fan Donahue is a 46 year old (Gnosticist) male accompanied by his . ?? I initially saw him in July 2012. Mr. Donahue came seeking a second opinion for nephrotic syndrome with up to 9 gr/day, biopsy proven idiopathic/immune membranous glomerulopathy for which he was started on diuretics and cyclosporine. The biopsy was confirmed as membranous here. He quit taking the latter one due to side effects that according to him developed within 2 days, later stopping all medications recommended by physicians. His eGFR was above 80 according to outside medical records. He did have multiple serologies checked with all normal or negative results. At that point I was in agreement with immunosuppression given the high degree of proteinuria, however, wanted to add VIMAL inhibitor. He agreed at that moment but didn't take any medications other than herbal and OTC supplements that he was told by non-medical personnel it would improve his kidney disease. He later agreed to take lisinopril and furosemide but renal function continued to deteriorate with Cr up to 1.5 and proteinuria peaking at 18 gr/day. Finally agreed to start steroid high dose 80 mg/day and cyclosporine 100 mg BID during visit 03/14/13. 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 Had excellent reponse with proteinuria coming down from 18 to 3.6 gr, albumin improved and lipids decreased. He was on coumadin prophylaxis now stopped. Had echocardio due to new murmur pretty much unremarkable. BRENT in the past. He plays with the medications sometimes trying to avoid side effects. He actually stopped taking prednisone altogether due to blurry vision in his left eye at some point. Had laser surgery. ?? Had PLA2R positive titer 1:80 in 01/2015 and repeated in 08/2015 1:160. Was then given Rituximab 1 gr IV x2 on 09/25 and 10/10 2015. PLA2R almost negative (1:10)?in 10/2015 positive again 1:80 in 07/2016. Off prednisone and cyclosporine since 11/2015. Pr/Cr ratio 2.9 up in most recent in 07/2016 to 3.7, Cr up to 1.3 from 1.2 and alb down from 2.6 to 2.3. ?Again feeling not well since last visit in 07/2016. ?Worsening albumin 2.0 10/20/16 and PrCr ratio up to 5 again in 07/2016. ?Was given Rituximab second round in and 11/2016. Since then feeling much better. ?01/30/2017: Cr 1.2, Alb 2.6, Pr/Cr 2.3, Hg 12.5. Since visit in 05/2017 virtually no edema, variable frothy urine but is random. Knows he has gained a lot of weight. Continues to smoke. Labs 11/2017 stable Cr ~1.4, Alb 3.1, Pr/Cr 1.7. 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 - CKD (chronic kidney disease) stage 3, GFR 30-59 ml/min ([facility]) - Membranous nephrosis - Nephrotic syndrome - Tobacco use PAST SURGICAL HISTORY Procedure Laterality Date - PAST SURGICAL HISTORY OF appendix Current Outpatient Prescriptions: lisinopril (ZESTRIL, PRINIVIL) 10 mg tablet Take 1 tablet by mouth once daily. Magnesium 30 mg tablet Take 30 mg by mouth twice daily. Unsure of dose escitalopram oxalate 10 mg tablet Take 1 tablet by mouth once daily. CALCIUM ORAL Take 1 tablet by mouth twice daily. No current facility-administered medications for this visit. ALLERGIES No Known Allergies Social History Marital status: Spouse name: Years of education: Number of children: Occupational History Occupation Employer Comment Land work. Social History Main Topics Smoking status: Current Every Day Smoker Packs/day: 0.80 Years: 20.00 Types: Cigarettes Smokeless tobacco: Never Used Alcohol use: No Drug use: No FAMILY HISTORY Problem Relation Age of Onset - Hypertension Mother - Hypertension Sister - other (amyloidosis [Other]) Other Cousin on [employer] due to it. Review of systems: General: Negative for weight loss, night sweats, fever, and fatigue Head/Neck: Negative for photophobia, oral ulcers/sores, metallic or bitter taste, epistaxis, and chronic nasal congestion Cardiac: Negative for syncope, palpitations, orthopnea, lightheadedness, dizziness, chest pain or pressure, and PND Vascular: Negative for raynauds, edema, and claudication Pulmonary: Negative for hemoptosis, dyspnea, and cough GastroIntestinal: Negative for nausea, loss of appetite, emesis, diarrhea, constipation, and abdominal pain Genito-Urinary: Positive for frothy urine; Negative for urinary hesitancy, urinary frequency, straining, pink or red urine, pain with urination, nocturia, groin pain, flank pain, and decreased urine Musculoskeletal: Negative for joint swelling, and joint pain Neurologic: Negative for weakness, tremor, parathesias, and numbness Skin: Negative for rash, photosensitivity, and malar rash Hematology: Negative for easy bruising, and easy bleeding Endocrinology: Negative for hypoglycemic events, and heat or cold intolerance Other: Negative for morning headache, excessive snoring, and daytime somnolence No enlarged lymph nodes, lymphadenopathy or lymph tenderness. BP 119/78 (BP Site: Right Arm, BP Position: Sitting, BP Cuff Size: Regular Adult) Pulse (!) 50 Ht 175.3 cm (5' 9) Wt 106.1 kg (234 lb) BMI 34.56 kg/m? Average BP (BpTru): 119/78 BpTRU BP #1 discard value (BpTru): 126/79 Pulse #1 Discard Value (BpTru): 49 beats/min BP #2 (BpTru): 119/80 Pulse #2 (BpTru): 49 beats/min BP #3 (BpTru): 124/73 Pulse #3 (BpTru): 49 beats/min BP #4 (BpTru): 116/83 Pulse #4 (BpTru): 50 beats/min BP #5 (BpTru): 123/79 Pulse #5 (BpTru): 52 beats/min BP #6 (BpTru): 115/76 Pulse #6 (BpTru): 50 beats/min Average BP (BpTru): 119/78 Average Pulse (BpTru): 50 beats/min BP cuff location: Right upper arm BP cuff size: regular adult Exam: Constitutional: Not obese. Mental status: alert and oriented x 3. No acute distress. ENT: Oral mucosa: moist, no lesions, no jaundice. Oropharynx no lesions, erythema or exudate. Eyes: No icterus, not injected. Cardiovascular: Heart: normal rate, regular rhythm, + murmur heard today, no rubs. Lungs: Symmetric lung expansion. Clear to auscultation without wheezes, rales or rubs. Abdomen: Flat. Bowel sounds present and normoactive. Non-tender to palpation. Non-distended. Extremities: No edema. No deformities. Skin: No jaundice. No rash. No malar rash. Musculoskeletal: Joints without swelling, tenderness, erythema, warmth. No muscle tenderness. FROM Neuro: no major focal deficits. No asterixis. Labs reviewed Hemoglobin (g/dL) Date Value 08/20/2016 12.6 Hematocrit (%) Date Value 08/20/2016 37.1 WBC (k/uL) Date Value 08/20/2016 9.70 Glucose (mg/dL) Date Value 08/20/2016 99 Potassium (mmol/L) Date Value 08/20/2016 4.2 Sodium (mmol/L) Date Value 08/20/2016 140 Chloride (mmol/L) Date Value 08/20/2016 107 CO2 (mmol/L) Date Value 08/20/2016 23 Creatinine (mg/dL) Date Value 08/20/2016 1.40 BUN (mg/dL) Date Value 08/20/2016 21 Anion Gap (mmol/L) Date Value 08/20/2016 10 Calcium (mg/dL) Date Value 08/20/2016 8.6 Albumin (g/dL) Date Value 08/20/2016 2.6 pH, Urine Date Value Ref Range Status 04/07/2016 6.5 4.5 - 8.0 Final Specific [place], Ur Date Value Ref Range Status 04/07/2016 1.013 1.005 - 1.030 Final Glucose, Urine Date Value Ref Range Status 04/07/2016 Negative Negative mg/dL Final Bilirubin, Urine Date Value Ref Range Status 04/07/2016 Negative Negative Final Ketones, Urine Date Value Ref Range Status 04/07/2016 Negative Negative Final Hemoglobin/Blood,Ur Date Value Ref Range Status 04/07/2016 Trace (A) Negative Final Protein, Urine Date Value Ref Range Status 04/07/2016 >=300 (A) Negative mg/dL Final Urobilinogen Date Value Ref Range Status 04/07/2016 Normal Normal Final Nitrites Date Value Ref Range Status 04/07/2016 Negative Negative Final WBC, Urine Date Value Ref Range Status 04/07/2016 0-5 0 - 5 /HPF Final Assessment/Plan- P ICD-10-CM PL 1. Membranous nephrosis N04.8 Change Dx 2. Chronic kidney disease, stage III (moderate) (HCC) N18.3 Change Dx 3. Obesity, Class I, BMI 30-34.9 E66.9 Change Dx 4. Nephrotic syndrome N04.9 Change Dx 5. Tobacco use Z72.0 Stable renal function. Still with residual proteinuria. Based on this will increase lisinopril 20 mg/night. Will check labs closer due to this change and for progression of the disease. Will do monthly labs and RTC in 6 months. Will also do labs here today mainly to check on titers of PLA2R which haven't been checked since 07/2016 as we need to see if another dose of Rituximab or other IS is warranted. Will also check PTH, vit D and lipids with HgA1c All questions answered. Thank You for allowing us to participate in his care. Everett Girard MD. [facility]. [id number] Staff. Nephrology and Hypertension. December 16, 2017 9:37 AM Everett Girard MD 12/16/2017 9:47 AM Signed Increase dose of lisinopril to 20 mg/night. Check blood work 2-3 weeks after this change and then monthly until you see me back. Do blood labs today as well. Hypertension education. I counseled the patient on the need to restrict dietary sodium intake to better control blood pressure. We discussed a 2400 mg sodium diet, discussed which common foods are high in sodium that should be avoided as well as how to monitor sodium intake by reviewing nutritional labeling. We discussed the benefits of moderate aerobic exercise and weight control on blood pressure control. We also discussed the importance of measuring blood pressure at home. Take your blood pressure (BP) 3-4 times/week in the morning. When You take it, take the BP 3 times on a row and make an average of these 3 readings and write it down in your log book. Take the blood pressure while sitting down, legs uncrossed and after having rested at least 10-15 minutes. Write down the numbers and bring them to your next appointment. Limit caffeinated drinks. Stop smoking. Avoid NSAIDs (non steroidal antiinflammatory drugs) or pain killers such as ibuprofen, Advil, naproxen, Aleve, indomethacin, meloxicam (Mobic), diclofenac, daypro (Oxaprozin), ketorolac (Toradol), etodolac (Lodine), etc. And SILVA 2 inhibitors (celebrex, etc.) Tylenol (acetaminophen) is OK. Tramadol also OK. Referring Provider: EVERETT GIRARD [[id number]] Allergies As of Date: 12/16/2017 (No Known Allergies) Date Reviewed: 12/16/2017 Reviewed by: Karen Rivas Ma - Fully Assessed Reason for Visit: Chronic Kidney Disease [4078] Primary Visit Diagnosis:Membranous nephrosis [N04.8] Other Visit Diagnoses:Chronic kidney disease, stage III (moderate) (HCC) [N18.3] Obesity, Class I, BMI 30-34.9 [E66.9] Nephrotic syndrome [N04.9] Tobacco use [Z72.0] Order(s):UA DIP, URINE (POC) [6143374] Order #: [id number]. #:[id number] lisinopril (ZESTRIL, PRINIVIL) 10 mg tabletTake 2 tablets by mouth daily at bedtime.Disp: 60 tabletRfl: 6 PHOSPHOLIPASE A2 RECEPTOR ANTIBODY (IGG) [DRTAJ4O] Order #: [id number] FUTURE RENAL FUNCTION PANEL [SQRFP] Order #: [id number] FUTURE CBC + DIFF [SQCBCDIF] Order #: [id number] FUTURE LIPID PANEL BASIC [SQLIPB] Order #: [id number] FUTURE HGB A1C [JSHHH3P] Order #: [id number] FUTURE PTH INTACT BLD [SQPTHI] Order #: [id number] FUTURE VITAMIN D 25 HYDROXY [SQVITD] Order #: [id number] FUTURE Prescriptions as of 12/16/2017 Sig: LISINOPRIL 10 MG TABLET Take 2 tablets by mouth daily* MAGNESIUM 30 MG TABLET Take 30 mg by mouth twice deb* ESCITALOPRAM 10 MG TABLET Take 1 tablet by mouth once d* CALCIUM ORAL Take 1 tablet by mouth twice * Problem List As Of Date 12/16/2017 Noted Resolved Nephrotic syndrome [N04.9] INVALID FOR* Membranous nephrosis [N04.8] INVALID FOR* Chronic kidney disease, stage III (moderate) [N*INVALID FOR* Other disorders of plasma protein metabolism [E*INVALID FOR* extermination inspector (current) use of anticoagulants [Z79.*INVALID FOR* More... Immunosuppressed status (HCC) [D89.9] INVALID FOR* Tobacco use [Z72.0] INVALID FOR* Obesity, Class I, BMI 30-34.9 [E66.9] INVALID FOR* Other instructions from your clinician: Increase dose of lisinopril to 20 mg/night. Check blood work 2-3 weeks after this change and then monthly until you see me back. Do blood labs today as well. Hypertension education. I counseled the patient on the need to restrict dietary sodium intake to better control blood pressure. We discussed a 2400 mg sodium diet, discussed which common foods are high in sodium that should be avoided as well as how to monitor sodium intake by reviewing nutritional labeling. We discussed the benefits of moderate aerobic exercise and weight control on blood pressure control. We also discussed the importance of measuring blood pressure at home. Take your blood pressure (BP) 3-4 times/week in the morning. When You take it, take the BP 3 times on a row and make an average of these 3 readings and write it down in your log book. Take the blood pressure while sitting down, legs uncrossed and after having rested at least 10-15 minutes. Write down the numbers and bring them to your next appointment. Limit caffeinated drinks. Stop smoking. Avoid NSAIDs (non steroidal antiinflammatory drugs) or pain killers such as ibuprofen, Advil, naproxen, Aleve, indomethacin, meloxicam (Mobic), diclofenac, daypro (Oxaprozin), ketorolac (Toradol), etodolac (Lodine), etc. And SILVA 2 inhibitors (celebrex, etc.) Tylenol (acetaminophen) is OK. Tramadol also OK. Visit Notes: >> Karen Rivas Ma Rafaela Dec 16, 2017 9:00 AM Status: Signed Average BP (BpTru): 119/78 BpTRU BP #1 discard value (BpTru): 126/79 Pulse #1 Discard Value (BpTru): 49 beats/min BP #2 (BpTru): 119/80 Pulse #2 (BpTru): 49 beats/min BP #3 (BpTru): 124/73 Pulse #3 (BpTru): 49 beats/min BP #4 (BpTru): 116/83 Pulse #4 (BpTru): 50 beats/min BP #5 (BpTru): 123/79 Pulse #5 (BpTru): 52 beats/min BP #6 (BpTru): 115/76 Pulse #6 (BpTru): 50 beats/min Average BP (BpTru): 119/78 Average Pulse (BpTru): 50 beats/min BP cuff location: Right upper arm BP cuff size: regular adult Prescriptions ordered this encounter Disp Refills Start End LISINOPRIL 10 MG TABLET 60 t* 6 12/16/2017 Route: ORAL Sig: Take 2 tablets by mouth daily at bedtime. Medications Discontinued During This Encounter lisinopril 20 mg tablet 30 t* 3 01/17/2013 12/16/2017 Route: ORAL Sig: Take 1 tablet by mouth daily at bedtime for 30 days. Disc: Reason for discontinue is not on file. lisinopril (ZESTRIL) 20 mg tablet 30 t* 6 08/02/2012 12/16/2017 Route: ORAL Sig: Take 1 tablet by mouth once daily for 30 days. Disc: Reason for discontinue is not on file. lisinopril (ZESTRIL, PRINIVIL) 10 mg* 90 t* 3 02/04/2017 12/16/2017 Route: ORAL Sig: Take 1 tablet by mouth once daily. Disc: Reason for discontinue is not on file. Disposition: Return in about 6 months (around 06/18/2018). Follow-up and Disposition History Recorded Letter Text Department of Nephrology/Hypertension [address] [place] [address] Appointments: December 16, 2017 Fan Donahue [address] [address] [facility] # [id number] [facility]: This letter is to request the following lab work to be done when the patient presents and monthly thereafter: CBC with platelets, renal panel. UA and urine protein to creatinine ratio. Diagnosis: Membranous nephropathy. Sincerely, Everett Girard MD (Signed electronically) PLEASE FAX TEST RESULTS TO MY OFFICE: Encounter Status:Closed by EVERETT GIRARD MD on 12/16/17 CBC-COMPLETE BLOOD CNT Collected: 12/11/2017 Status: F Source: [place] NO DIFF 9:21 AM [facility] REPOSITORY TYPE CODE TESTS RESULT OUT OF RANGE REFERENCE UNITS LAB L100.1000 4.4-11.0 K/mm3 Normal WBC 8.4 LAB L100.1200 4.6-6.2 M/mm3 Low RBC 4.09 LAB L100.1300 13.0-16.5 g/dl Low HGB 12.6 LAB L100.1400 40-54 % Low HCT 36.1 LAB L100.1500 80-94 fL Normal MCV 88.3 LAB L100.1600 27.0-32.0 pg Normal MCH 30.8 LAB L100.1700 32-36 g/gl Normal MCHC 34.9 LAB L100.1810 11.6-14.6 % Normal RDW CV 12.8 LAB L100.1820 35.1-43.9 fl Normal RDW SD 40.6 LAB L100.1900 150-450 K/mm3 Normal PLT 234 LAB L100.2000 6.2-12.0 fl Normal MPV 10.0 Performed By: #### L100.0500 #### [facility] [address] [place], [address] URINALYSIS, COMPLETE Collected: 12/11/2017 Status: F Source: CYN 9:21 AM [facility] REPOSITORY Order Comment: How was Urine Obtained? CLEAN CATCH TYPE CODE TESTS RESULT OUT OF RANGE REFERENCE UNITS LAB L400.3000 Yellow COLOR Normal Yellow LAB L400.3050 Clear Normal CLARITY Clear LAB L400.3200 Normal mg/dl Normal GLUCOSE, UR Normal LAB L400.3300 Negative mg/dL Normal BILIRUBIN URINE Negative LAB L400.3400 Negative mg/dl Normal KETONE UR Negative LAB L400.3465 1.002-1.030 Normal SP.GR. DIPSTX 1.015 LAB L400.3550 5.0 - 8.0 pH UR Normal 6.0 LAB L400.3600 Negative mg/dl High PROT DIPSTX 100 LAB L400.3700 Normal mg/dl Normal UROBILI Normal LAB L400.3750 Negative Normal NITRITE UR Negative LAB L400.3780 Negative /ul High 10 OCCULT BLOOD-UR LAB L400.3800 Negative /ul LEUK Normal ESTERASE Negative LAB L400.4050 0-5 /hpf WBC 0 Normal SEEN LAB L400.4100 0-5 /hpf 0 Normal RBC-UA SEEN LAB L400.4150 0-5 /hpf SQUAM 0 Normal EPI SEEN LAB L400.4300 None Seen /hpf 0 Normal BACTERIA SEEN LAB L400.4350 <or=2+ /hpf 0 Normal MUCUS, URINE SEEN Performed By: #### L400.0001 #### [facility] [address] [place], [place], [id number] PROTEIN+CREATININE Collected: Status: F Source: CYN RATIO,URINE 12/11/2017 9:21 AM [facility] REPOSITORY TYPE CODE TESTS RESULT OUT OF RANGE REFERENCE UNITS LAB L501.1200 NO RANGE EST. mg/dL Normal UR CREAT 109.00 LAB L501.1930 <11.9 mg/dL High 195.0 PROTEIN,UR.R AN. LAB L501.1940 0-200 mg/g CRE High PROT:CRE 1789 RATIO Performed By: #### L501.0900 #### [facility] [address] [place], [place], [id number] RENAL PROFILE Collected: 12/11/2017 Status: F Source: [place] 9:21 AM [facility] REPOSITORY TYPE CODE TESTS RESULT OUT OF RANGE REFERENCE UNITS LAB L501.0100 74-106 mg/dL Normal GLU 96 Result Comment: Please note revised GLUCOSE reference range effective 2017. LAB L501.1000 7-18 mg/dL Normal BUN 17 LAB L501.1100 0.70-1.30 mg/dL High CREAT,SERUM 1.40 Result Comment: The validity of the calculated GFR AND GFRAA in patients over 70 years has not been determined. Clinical correlation is essential. LAB L501.1110 >60 mL/min Low EST GFR 58 Result Comment: Non- GFR Calc LAB L501.1115 >60 mL/min Normal EST GFR - AA 70 Result Comment: GFR Calc LAB L501.1300 10-20 RATIO Normal BUN/CRE 12.1 LAB L501.1800 3.2-5.0 g/dL Low ALB 3.1 LAB L501.2200 8.5-10.1 mg/dL CA Normal 8.8 LAB L501.2300 2.5-4.9 mg/dL Normal PHOS 3.8 LAB L501.5300 136-145 mmol/L NA Normal 140 LAB L501.5600 3.5-5.1 mmol/L K Normal 4.0 LAB L501.5900 98-107 mmol/L CL Normal 106 LAB L501.6100 21.0-32.0 mmol/L Normal CO2 25.0 Performed By: #### L500.3600 #### [facility] [address] [place], [place], [address] CBC W/DIFF, AUTOMATED Collected: 10/16/2017 Status: F Source: [place] 9:04 AM [facility] REPOSITORY TYPE CODE TESTS RESULT OUT OF RANGE REFERENCE UNITS LAB L100.1000 4.4-11.0 K/mm3 Normal WBC 7.5 LAB L100.1200 4.6-6.2 M/mm3 Low RBC 4.00 LAB L100.1300 13.0-16.5 g/dl Low HGB 12.3 LAB L100.1400 40-54 % Low HCT 35.3 LAB L100.1500 80-94 fL Normal MCV 88.3 LAB L100.1600 27.0-32.0 pg Normal MCH 30.8 LAB L100.1700 32-36 g/gl Normal MCHC 34.8 LAB L100.1810 11.6-14.6 % Normal RDW CV 12.6 LAB L100.1820 35.1-43.9 fl Normal RDW SD 39.8 LAB L100.1900 150-450 K/mm3 Normal PLT 243 LAB L100.2000 6.2-12.0 fl Normal MPV 9.9 LAB L100.2100 47-70 % Normal NEUT% 60.7 LAB L100.2200 19-41 % Normal LY% 26.7 LAB L100.2300 0-10 % Normal MONO% 7.4 LAB L100.2400 0-5 % Normal EO% 4.4 LAB L100.2500 0-1 % Normal BASO% 0.5 LAB L100.2550 0.0-0.9 % Normal IM GRAN % 0.300 Result Comment: IG% - Immature Granulocytes (promyelocytes, myelocytes and metamyelocytes) > 1% indicates that a LEFT SHIFT is Present. LAB L100.2620 2.0-7.7 X10 3/uL Normal Absolute Neut 4.6 LAB L100.2720 0.83-4.51 X10 3/ul Normal Absolute Lymph 2.01 Performed By: #### L100.0100 #### [facility] [address] [place], [address] URINALYSIS, COMPLETE Collected: 10/16/2017 Status: F Source: [place] 9:04 AM [facility] REPOSITORY Order Comment: How was Urine Obtained? CLEAN CATCH TYPE CODE TESTS RESULT OUT OF RANGE REFERENCE UNITS LAB L400.3000 Yellow COLOR Normal Yellow LAB L400.3050 Clear Normal CLARITY Clear LAB L400.3200 Normal mg/dl Normal GLUCOSE, UR Normal LAB L400.3300 Negative mg/dL Normal BILIRUBIN URINE Negative LAB L400.3400 Negative mg/dl Normal KETONE UR Negative LAB L400.3465 1.002-1.030 Normal SP.GR. DIPSTX 1.015 LAB L400.3550 5.0 - 8.0 pH UR Normal 6.0 LAB L400.3600 Negative mg/dl High PROT DIPSTX 500 LAB L400.3700 Normal mg/dl Normal UROBILI Normal LAB L400.3750 Negative Normal NITRITE UR Negative LAB L400.3780 Negative /ul High 10 OCCULT BLOOD-UR LAB L400.3800 Negative /ul LEUK Normal ESTERASE Negative LAB L400.4050 0-5 /hpf WBC 0 Normal SEEN LAB L400.4100 0-5 /hpf 0 Normal RBC-UA SEEN LAB L400.4150 0-5 /hpf SQUAM 0 Normal EPI SEEN LAB L400.4300 None Seen /hpf 0 Normal BACTERIA SEEN LAB L400.4350 <or=2+ /hpf 0 Normal MUCUS, URINE SEEN Performed By: #### L400.0001 #### [facility] [address] [place], [place], [id number] RENAL PROFILE Collected: 10/16/2017 Status: F Source: [place] 9:04 AM [facility] REPOSITORY TYPE CODE TESTS RESULT OUT OF RANGE REFERENCE UNITS LAB L501.0100 74-106 mg/dL Normal GLU 97 Result Comment: Please note revised GLUCOSE reference range effective 2017. LAB L501.1000 7-18 mg/dL Normal BUN 17 LAB L501.1100 0.70-1.30 mg/dL Normal CREAT,SERUM 1.30 Result Comment: The validity of the calculated GFR AND GFRAA in patients over 70 years has not been determined. Clinical correlation is essential. LAB L501.1110 >60 mL/min Normal EST GFR 63 Result Comment: Non- GFR Calc LAB L501.1115 >60 mL/min Normal EST GFR - AA 76 Result Comment: GFR Calc LAB L501.1300 10-20 RATIO Normal BUN/CRE 13.1 LAB L501.1800 3.2-5.0 g/dL Low ALB 3.0 LAB L501.2200 8.5-10.1 mg/dL CA Normal 8.6 LAB L501.2300 2.5-4.9 mg/dL Normal PHOS 3.4 LAB L501.5300 136-145 mmol/L NA Normal 139 LAB L501.5600 3.5-5.1 mmol/L K Normal 4.2 LAB L501.5900 98-107 mmol/L High CL 108 LAB L501.6100 21.0-32.0 mmol/L Normal CO2 27.0 Performed By: #### L500.3600 #### [facility] [address] [place], [address] PROTEIN+CREATININE Collected: Status: F Source: [place] RATIO,URINE 10/16/2017 9:04 AM [facility] REPOSITORY TYPE CODE TESTS RESULT OUT OF RANGE REFERENCE UNITS LAB L501.1200 NO RANGE EST. mg/dL Normal UR CREAT 115.00 LAB L501.1930 <11.9 mg/dL High 196.7 PROTEIN,UR.R AN. LAB L501.1940 0-200 mg/g CRE High PROT:CRE 1710 RATIO Performed By: #### L501.0900 #### [facility] [address] [place], [address] PROTEIN/CREATININE RATIO Collected: Status: F Source: [place] 06/17/2017 11:05 AM [facility] REPOSITORY TYPE CODE TESTS RESULT OUT OF REFERENCE UNITS RANGE LAB UTPR 0-20 mg/dL High Protein Urine 227 Random LAB UCRR 20-300 mg/dL Creatinine,Ur 135.7 ine,Ran LAB PCRAT <0.2 High Protein/Creat 1.7 inine Ratio Performed By: #### PRAYOANA #### [facility] [address] [place], [place] [address] PROGRESS Observed: 06/17/2017 Status: COMPLETED Source: [place] 10:02 AM [facility] REPOSITORY HNO ID: [id number] Author: Everett Girard Service: (none) Author Type: Physician Type: Progress Notes Filed: 06/17/2017 10:15 AM Note Text: [facility] FORMERLY [facility], LATER [facility]. Patient Name: Fan Donahue CHIEF COMPLAINT: follow up on membranous nephropathy. HPI: Fan Donahue is a 46 year old (Gnosticist) male accompanied by his . ?? I initially saw him in July 2012. Mr. Donahue came seeking a second opinion for nephrotic syndrome with up to 9 gr/day, biopsy proven idiopathic/immune membranous glomerulopathy for which he was started on diuretics and cyclosporine. The biopsy was confirmed as membranous here. He quit taking the latter one due to side effects that according to him developed within 2 days, later stopping all medications recommended by physicians. His eGFR was above 80 according to outside medical records. He did have multiple serologies checked with all normal or negative results. At that point I was in agreement with immunosuppression given the high degree of proteinuria, however, wanted to add VIMAL inhibitor. He agreed at that moment but didn't take any medications other than herbal and OTC supplements that he was told by non-medical personnel it would improve his kidney disease. He later agreed to take lisinopril and furosemide but renal function continued to deteriorate with Cr up to 1.5 and proteinuria peaking at 18 gr/day. Finally agreed to start steroid high dose 80 mg/day and cyclosporine 100 mg BID during visit 03/14/13. 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 Had excellent reponse with proteinuria coming down from 18 to 3.6 gr, albumin improved and lipids decreased. He was on coumadin prophylaxis now stopped. Had echocardio due to new murmur pretty much unremarkable. BRENT in the past. He plays with the medications sometimes trying to avoid side effects. He actually stopped taking prednisone altogether due to blurry vision in his left eye at some point. Had laser surgery. ?? Had PLA2R positive titer 1:80 in 01/2015 and repeated in 08/2015 1:160. Was then given Rituximab 1 gr IV x2 on 09/25 and 10/10 2015. PLA2R almost negative (1:10)?in 10/2015 positive again 1:80 in 07/2016. Off prednisone and cyclosporine since 11/2015. Pr/Cr ratio 2.9 up in most recent in 07/2016 to 3.7, Cr up to 1.3 from 1.2 and alb down from 2.6 to 2.3. ?Again feeling not well since last visit in 07/2016. ?Worsening albumin 2.0 10/20/16 and PrCr ratio up to 5 again in 07/2016. ?Was given Rituximab second round in and 11/2016. Since then feeling much better. 01/30/2017: Cr 1.2, Alb 2.6, Pr/Cr 2.3, Hg 12.5. Virtually no edema now and almost no more frothy urine but is random. Unfortunately, no labs for this visit. Knows he has gained a lot of weight. 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 - CKD (chronic kidney disease) stage 3, GFR 30-59 ml/min - Membranous nephrosis - Nephrotic syndrome - Tobacco use PAST SURGICAL HISTORY Procedure Laterality Date - PAST SURGICAL HISTORY OF appendix Current Outpatient Prescriptions: lisinopril (ZESTRIL, PRINIVIL) 10 mg tablet Take 1 tablet by mouth once daily. Magnesium 30 mg tablet Take 30 mg by mouth twice daily. Unsure of dose escitalopram oxalate 10 mg tablet Take 1 tablet by mouth once daily. CALCIUM ORAL Take 1 tablet by mouth twice daily. No current facility-administered medications for this visit. ALLERGIES No Known Allergies Social History Marital status: Spouse name: Years of education: Number of children: Occupational History Occupation Employer Comment Land work. Social History Main Topics Smoking status: Current Every Day Smoker Packs/day: 0.80 Years: 20.00 Types: Cigarettes Smokeless status: Never Used Alcohol use: No Drug use: No FAMILY HISTORY Problem Relation Age of Onset - Hypertension Mother - Hypertension Sister - amyloidosis [Other] [OTHER] Other Cousin on [employer] due to it. Review of systems: General: Negative for weight loss, night sweats, fever, and fatigue Head/Neck: Negative for photophobia, oral ulcers/sores, metallic or bitter taste, epistaxis, and chronic nasal congestion Cardiac: Negative for syncope, palpitations, orthopnea, lightheadedness, dizziness, chest pain or pressure, and PND Vascular: Negative for raynauds, edema, and claudication Pulmonary: Negative for hemoptosis, dyspnea, and cough GastroIntestinal: Negative for nausea, loss of appetite, emesis, diarrhea, constipation, and abdominal pain Genito-Urinary: Positive for frothy urine; Negative for urinary hesitancy, urinary frequency, straining, pink or red urine, pain with urination, nocturia, groin pain, flank pain, and decreased urine Musculoskeletal: Negative for joint swelling, and joint pain Neurologic: Negative for weakness, tremor, parathesias, and numbness Skin: Negative for rash, photosensitivity, and malar rash Hematology: Negative for easy bruising, and easy bleeding Endocrinology: Negative for hypoglycemic events, and heat or cold intolerance Other: Negative for morning headache, excessive snoring, and daytime somnolence No enlarged lymph nodes, lymphadenopathy or lymph tenderness. BP 118/78 (BP Site: Right Arm, BP Position: Sitting, BP Cuff Size: Large Adult) Pulse (!) 51 Ht 175.3 cm (5' 9) Wt 106.2 kg (234 lb 3.2 oz) BMI 34.59 kg/m2 Average BP (BpTru): 118/78 BpTRU BP #1 discard value (BpTru): 133/79 Pulse #1 Discard Value (BpTru): 61 beats/min BP #2 (BpTru): 133/82 Pulse #2 (BpTru): 52 beats/min BP #3 (BpTru): 117/75 Pulse #3 (BpTru): 49 beats/min BP #4 (BpTru): 116/78 Pulse #4 (BpTru): 50 beats/min BP #5 (BpTru): 114/75 Pulse #5 (BpTru): 49 beats/min BP #6 (BpTru): 108/79 Pulse #6 (BpTru): 54 beats/min Average BP (BpTru): 118/78 Average Pulse (BpTru): 51 beats/min BP cuff location: Right upper arm BP cuff size: regular adult Exam: Constitutional: Not obese. Mental status: alert and oriented x 3. No acute distress. ENT: Oral mucosa: moist, no lesions, no jaundice. Oropharynx no lesions, erythema or exudate. Eyes: No icterus, not injected. Cardiovascular: Heart: normal rate, regular rhythm, no murmur, no rubs. Lungs: Symmetric lung expansion. Clear to auscultation without wheezes, rales or rubs. Abdomen: Flat. Bowel sounds present and normoactive. Non-tender to palpation. Non-distended. Extremities: No edema. No deformities. Skin: No jaundice. No rash. No malar rash. Musculoskeletal: Joints without swelling, tenderness, erythema, warmth. No muscle tenderness. FROM Neuro: no major focal deficits. No asterixis. Labs reviewed Hemoglobin (g/dL) Date Value 08/20/2016 12.6 Hematocrit (%) Date Value 08/20/2016 37.1 WBC (k/uL) Date Value 08/20/2016 9.70 Glucose (mg/dL) Date Value 08/20/2016 99 Potassium (mmol/L) Date Value 08/20/2016 4.2 Sodium (mmol/L) Date Value 08/20/2016 140 Chloride (mmol/L) Date Value 08/20/2016 107 CO2 (mmol/L) Date Value 08/20/2016 23 Creatinine (mg/dL) Date Value 08/20/2016 1.40 BUN (mg/dL) Date Value 08/20/2016 21 Anion Gap (mmol/L) Date Value 08/20/2016 10 Calcium (mg/dL) Date Value 08/20/2016 8.6 Albumin (g/dL) Date Value 08/20/2016 2.6 pH, Urine Date Value Ref Range Status 04/07/2016 6.5 4.5 - 8.0 Final Specific [place], Ur Date Value Ref Range Status 04/07/2016 1.013 1.005 - 1.030 Final Glucose, Urine Date Value Ref Range Status 04/07/2016 Negative Negative mg/dL Final Bilirubin, Urine Date Value Ref Range Status 04/07/2016 Negative Negative Final Ketones, Urine Date Value Ref Range Status 04/07/2016 Negative Negative Final Hemoglobin/Blood,Ur Date Value Ref Range Status 04/07/2016 Trace (A) Negative Final Protein, Urine Date Value Ref Range Status 04/07/2016 >=300 (A) Negative mg/dL Final Urobilinogen Date Value Ref Range Status 04/07/2016 Normal Normal Final Nitrites Date Value Ref Range Status 04/07/2016 Negative Negative Final WBC, Urine Date Value Ref Range Status 04/07/2016 0-5 0 - 5 /HPF Final Assessment/Plan- Visit Diagnoses Search for new itemAdd PreviousProblems P ICD-10-CM PL 1. Membranous nephrosis N04.8 Change Dx 2. Chronic kidney disease, stage III (moderate) N18.3 Change Dx 3. Nephrotic syndrome N04.9 Change Dx 4. Tobacco use Z72.0 No labs for this visit but clinically doing well. Will continue same for now. Will recheck Pr/Cr today here. Labs Q3 months and RTC in 6 months. His son is getting in September. Time spent in direct contact with the patient, counseling and coordination of care over 25 minutes. Greater than 50% of the visit was spent with face to face counselling, discussion of the above topics, and coordination of care. All questions answered. Thank You for allowing us to participate in his care. Everett Girard MD. [facility]. [id number] Staff. Nephrology and Hypertension. June 17, 2017 10:02 AM PROTEIN+CREATININE Collected: Status: F [facility] 06/12/2017 7:43 AM [facility] REPOSITORY TYPE CODE TESTS RESULT OUT OF RANGE REFERENCE UNITS LAB L501.1200 NO RANGE EST. mg/dL Normal UR CREAT 119.00 LAB L501.1930 <11.9 mg/dL High 226.1 PROTEIN,UR.R AN. LAB L501.1940 0-200 mg/g CRE High PROT:CRE 1900 RATIO Performed By: #### L501.0900 #### [facility] [address] [facility]. [place], [place], [address] URINALYSIS, ROUTINE Collected: 06/12/2017 Status: F Source: CYN (DIPSTICK) 7:43 AM [facility] REPOSITORY Order Comment: How was Urine Obtained? CLEAN CATCH TYPE CODE TESTS RESULT OUT OF RANGE REFERENCE UNITS LAB L400.3000 Yellow COLOR Normal Yellow LAB L400.3050 Clear Normal CLARITY Clear LAB L400.3200 Normal mg/dl Normal GLUCOSE, UR Normal LAB L400.3300 Negative mg/dL Normal BILIRUBIN URINE Negative LAB L400.3400 Negative mg/dl Normal KETONE UR Negative LAB L400.3465 1.002-1.030 Normal SP.GR. DIPSTX 1.020 LAB L400.3550 5.0 - 8.0 pH UR Normal 6.0 LAB L400.3600 Negative mg/dl High PROT DIPSTX 500 LAB L400.3700 Normal mg/dl Normal UROBILI Normal LAB L400.3750 Negative Normal NITRITE UR Negative LAB L400.3780 Negative /ul High 10 OCCULT BLOOD-UR LAB L400.3800 Negative /ul LEUK Normal ESTERASE Negative Performed By: #### L400.2010 #### [facility] [place], [address] CBC W/DIFF, AUTOMATED Collected: 06/12/2017 Status: F Source: [place] 7:43 AM [facility] REPOSITORY TYPE CODE TESTS RESULT OUT OF RANGE REFERENCE UNITS LAB L100.1000 4.4-11.0 K/mm3 Normal WBC 7.6 LAB L100.1200 4.6-6.2 M/mm3 Low RBC 4.12 LAB L100.1300 13.0-16.5 g/dl Low HGB 12.4 LAB L100.1400 40-54 % Low HCT 36.3 LAB L100.1500 80-94 fL Normal MCV 88.1 LAB L100.1600 27.0-32.0 pg Normal MCH 30.1 LAB L100.1700 32-36 g/gl Normal MCHC 34.2 LAB L100.1810 11.6-14.6 % Normal RDW CV 12.8 LAB L100.1820 35.1-43.9 fl Normal RDW SD 41.4 LAB L100.1900 150-450 K/mm3 Normal PLT 239 LAB L100.2000 6.2-12.0 fl Normal MPV 10.0 LAB L100.2100 47-70 % Normal NEUT% 61.7 LAB L100.2200 19-41 % Normal LY% 25.2 LAB L100.2300 0-10 % Normal MONO% 7.8 LAB L100.2400 0-5 % Normal EO% 4.5 LAB L100.2500 0-1 % Normal BASO% 0.7 LAB L100.2550 0.0-0.9 % Normal IM GRAN % 0.100 Result Comment: IG% - Immature Granulocytes (promyelocytes, myelocytes and metamyelocytes) > 1% indicates that a LEFT SHIFT is Present. LAB L100.2620 2.0-7.7 X10 3/uL Normal Absolute Neut 4.7 LAB L100.2720 0.83-4.51 X10 3/ul Normal Absolute Lymph 1.90 Performed By: #### L100.0100 #### [facility] [address] [place], [address] COMPREHENSIVE METABOLIC Collected: 06/12/2017 Status: F Source: [place] 7:43 AM [facility] REPOSITORY TYPE CODE TESTS RESULT OUT OF RANGE REFERENCE UNITS LAB L501.0100 74-106 mg/dL Normal GLU 101 Result Comment: Fasting Glucose result from 100 to 125 mg/dL suggests IMPAIRED HOMEOSTASIS per A.D.A. criteria. Please note revised GLUCOSE reference range effective 2017. LAB L501.1000 7-18 mg/dL High BUN 21 LAB L501.1100 0.70-1.30 mg/dL High CREAT,SERUM 1.42 Result Comment: The validity of the calculated GFR AND GFRAA in patients over 70 years has not been determined. Clinical correlation is essential. LAB L501.1110 >60 mL/min Low EST GFR 57 Result Comment: Non- GFR Calc LAB L501.1115 >60 mL/min Normal EST GFR - AA 69 Result Comment: GFR Calc LAB L501.1300 10-20 RATIO Normal BUN/CRE 14.8 LAB L501.1500 6.4-8.2 g/dL Low T PROT 6.0 LAB L501.1800 3.2-5.0 g/dL Low ALB 3.0 LAB L501.1950 2.2-4.2 g/dL Normal GLOB 3.0 LAB L501.2000 0.9-2.4 RATIO Normal A/G 1.0 LAB L501.2200 8.5-10.1 mg/dL CA Normal 8.6 LAB L501.4100 15-37 U/L Normal AST 23 LAB L501.4305 45-117 U/L Normal ALK P 46 LAB L501.4405 16-61 U/L Normal ALT 26 Result Comment: Please note revised ALT reference range effective 2017. LAB L501.4600 0.20-1.00 mg/dL Normal T BILI 0.30 LAB L501.5300 136-145 mmol/L Normal NA 139 LAB L501.5600 3.5-5.1 mmol/L Normal K 4.3 LAB L501.5900 98-107 mmol/L Normal CL 105 LAB L501.6100 21.0-32.0 mmol/L Normal CO2 27.0 LAB L501.6200 5-15 Normal GAP 7 Performed By: #### L500.4050 #### [facility] [address] [place], [address] ALLERGIES ALLERGIES DATE TYPE / CODE NAME / CODE REACTION SEVERITY SOURCE Drug NO KNOWN [facility] Class/99205 ALLERGIES Main [place] 1003(SNOMED Repository CT) ENCOUNTERS ENCOUNTERS ADMIT/DISCHARGE ACCOUNT ADMITTING ENCOUNTER LOCATION SOURCE NUMBER CLASS 04/12/2018 [id number] [facility] ing:LAB Repository 12/16/2017/12/17/19 [id number] Ambulatory [address] Repository 12/16/2017/01/01/20 [id number] Ambulatory [address] Repository 12/11/2017 [id number] [facility] ing:LAB Repository 10/16/2017 [id number] [facility] ing:LAB Repository 06/17/2017/06/18/[id number] Repository 06/12/2017 [id number] [facility] ing:LAB Repository PAYERS PAYERS ENCOUNTER GUARANTOR PAYER SUBSCRIBER SOURCE 04/12/2018 FAN Carmona Primary FAN Addison [id number] Insurance:[facility]: [address] [id number], [place] [address]Lgm: GROUPPolicy Number: Repository [id number] () Date: [address] [address]PJ: 04/12/2018 Secondary NOT [facility] Insurance:SELF PAY [facility] Number: Effective Repository Date:2018-04-12 12/11/2017 Fan Carmona Primary Fan Addison [id number] Tr Insurance:[facility]: [address] [id number], [place] [address]Klm: GROUPPolicy Number: Repository [id number] (HP) Date: [address] [place] [id number]: 12/11/2017 Secondary NOT GIVENUNK [place] Insurance:SELF PAY [facility] Number: Effective Repository Date:2017-12-11 10/16/2017 Fan Carmona Primary Fan [id number] Tr Insurance:RASTAFARI MillerDOB: Community [address] [place] [address] [id number], [place] [address]Qbo: GROUPPolicy Number: Repository [id number] (HP) Date: [address] [place] [id number]: 10/16/2017 Secondary NOT GIVENUNK [place] Insurance:SELF PAY [facility] Number: Effective Repository Date:2017-10-16 06/12/2017 Fan Carmona Primary Fan [id number] Tr Insurance:RASTAFARI MillerDOB: [address] [id number], [place] [address]Wwu: GROUPPolicy Number: Repository [id number] (HP) Date: [address] [place] [id number]: 06/12/2017 Secondary NOT GIVENUNK [place] Insurance:SELF PAY [facility] Number: Effective Repository Date:2017-06-12
== END ==
PROVIDERS: Family Provider Nurse Practitioner Family; PCP Nurse Practitioner Family
DX: N02.2 Recurrent and persistent hematuria with diffuse membranous glomerulonephritis (principal)
CPT/HCPCS: 36415; 80069; 81001; 82570; 84156; 85025

== ENCOUNTER → 2018-06-17 07:49 | Outpatient (CLI) | payer OTHER, SELFPAY ==
[2018-06-17 08:15] LABS: Absolute Lymphocyte Count 2.22 X10^3/ul (0.83-4.51); Absolute Neutrophil Count 4.5 X10^3/uL (2.0-7.7); Basophil# 0.04 X10^3/uL; Basophil% 0.5 % (0-1); Eosinophil# 0.39 X10^3/uL; Hemoglobin 12.6 g/dl (13.0-16.5); Lymphocyte # 2.22 X10^3/ul (4.0); Lymphocyte % 28.5 % (19-41); Mean Corp Hgb Conc 34.1 g/gl (32-36); Mean Corpuscular Hgb 30.5 pg (27.0-32.0); Mean Corpuscular Volume 89.6 fL (80-94); Mean Platelet Vol. 9.7 fl (6.2-12.0); Monocyte# 0.65 X10^3/uL; Monocyte% 8.3 % (0-10); Neutrophil # 4.49 X10^3/uL (2.7-7.7); Neutrophil % 57.6 % (47-70); POSITIVE COUNT NO; POSITIVE DIFFERENTIAL NO; POSITIVE MORPHOLOGY NO; Platelet Count 239 K/mm3 (150-450); RBC Distribution Width SD 41.7 fl (35.1-43.9); Red Blood Count 4.13 M/mm3 (4.6-6.2); White Blood Count 7.8 K/mm3 (4.4-11.0)
[2018-06-17 08:17] LABS: Color, Urine Yellow (Yellow); Glucose, Dipstick Normal (Normal); Ketone-Dipstick Negative (Negative); Leukocyte Esterase-Dipstick Negative /ul (Negative); Nitrite-Dipstick Negative (Negative); Occult Blood-Urine 25 /ul (Negative); Protein-Dipstick 500 mg/dl (Negative); Specific Gravity, Urine 1.015 (1.002-1.030); Urine Bilirubin Dipstick Negative (Negative); Urine Clarity Sl. Cloudy (Clear); Urine Urobilinogen Normal (Normal); Urine pH 6.5 (5.0 - 8.0)
[2018-06-17 08:25] LABS: Protein, Urine (Random) 513.5 mg/dL (<11.9); Protein:Creat Ratio 3861 mg/g CRE (0-200)
[2018-06-17 08:47] LABS: Albumin, Serum 2.3 g/dL (3.2-5.0); BUN 17 mg/dL (7-18); BUN/Creat Ratio 10.2 RATIO (10-20); Chloride 108 mmol/L (98-107); Creatinine, Serum 1.66 mg/dL (0.70-1.30); EST Glomerular Filtration Rate 47 mL/min (>60); Est Glom Filt Rate - Afr Amer 57 mL/min (>60); Glucose 91 mg/dL (74-106); Phosphorus 3.3 mg/dL (2.5-4.9); Potassium 4.2 mmol/L (3.5-5.1); Sodium Level 141 mmol/L (136-145)
== END ==
PROVIDERS: Family Provider Nurse Practitioner Family; PCP Nurse Practitioner Family
DX: N02.2 Recurrent and persistent hematuria with diffuse membranous glomerulonephritis (principal)
CPT/HCPCS: 36415; 80069; 81002; 82570; 84156; 85025